=== PATIENT | male | born 1980 | race Caucasian/White ===

== ENCOUNTER 2024-12-28 11:41 | Emergency (ER) | payer OTHER, SELFPAY ==
[2024-12-28] VITALS (7 sets, daily range): BP systolic 136–164; BP diastolic 82–98; PULSE 70–102; RESP 15–20; TEMP 37.1–37.3; O2SAT 96–98; BMI 37.5
--- NOTE | 2024-12-28 11:44 | ECG_ITS ---
APPROVED REPORT Exam: Resting ECG HR:102 bpm ECG Measurements Heart Rate 102 AXES DE 166 P 51 QRSd 96 QRS 9 QT 315 T 17 QTc 374 Conclusion SINUS TACHYCARDIA MODERATE VOLTAGE CRITERIA FOR LVH, CONSIDER NORMAL VARIANT [MEETS CRITERIA IN ONE OF: R(aVL), S(V1), R(V5), R(V5/V6)+S(V1)] ABNORMAL RHYTHM ECG UNCONFIRMED REPORT Electronically signed by : RAQUEL SOMMERS, 12/29/2024 08:49:42
--- NOTE | 2024-12-28 11:49 | XR_ITS ---
FINAL REPORT TECHNIQUE: Single view chest CLINICAL HISTORY: chest pain FINDINGS: A single view of the chest was obtained. The heart and mediastinum are within normal limits. The lungs are clear. There is no pneumothorax. IMPRESSION: No acute cardiopulmonary process. Reviewed, Interpreted and Dictated by Yuan Gilbert MD Transcribed by Chiquis Jerome Authenticated and [facility]
--- NOTE | 2024-12-28 11:50 | ED_ITS ---
Discharge Plan Disposition Patient Disposition: Home, Self-Care Condition: Good Prescriptions Prescriptions: No Action No Known Home Medications Referrals Follow up/Referrals: Serafin Garcia MD [Primary Care Provider, Internal Medicine] - See instructions Activity Restrictions/Add. Instructions Additional Instructions/Restrictions: Follow-up with your primary care physician as your blood pressures were elevated here and your blood pressure will need to be checked again, and you may need to be on medication for your elevated blood pressure. If you develop any new or worsening symptoms, or if you become concerned for your health for any reason, return to the emergency department for evaluation Clinical Impressions Clinical Impression: Chest pain Print Language Print Language: Estonian Discharge ED Provider: Yang Gonzales General Adult HPI <Yang Gonzales MD - Last Filed: 12/28/24 15:01> General Chief complaint: Chest Pain Stated complaint: Chest Pain Time Seen by Provider: 12/28/24 11:41 Mode of Arrival: Ambulatory Source of Information: Patient Description of Symptoms (Recalled from ER Triage Doc. by RN): pt c/o left sided chest pain that lasted for about 30minutes while moving heavy boxes at work. o c/o shortness of breath. left ear fullness for 2 weeks. History of Present Illness HPI narrative: Bobby Armendariz is a 44-year-old male with no significant past medical history who presents to the emergency department for an episode of chest pain that occurred prior to arrival. Patient states that he was moving boxes at work and had a cramping tightness in his chest below his left nipple. He states that this lasted approximately 30 minutes. He states that the pain is resolving now. He denies any shortness of breath with it. He denies any nausea, vomiting, abdominal pain, fever, cough. Patient denies any personal cardiac history. He states that his father had a stroke. He does state that he has had fullness in his left ear for 2 weeks and has been dealing with nasal congestion. He denies any left ear pain. Related Data Home Medications ?Medication ?Instructions ?Recorded ?Confirmed No Known Home Medications 12/28/24 0810/17 Allergies Allergy/AdvReac Type Severity Reaction Status Date / Time No Known Allergies Allergy Verified 12/28/24 11:48 PFSH <Yang Gonzales MD - Last Filed: 12/28/24 15:01> [facility] Disclaimer: The information contained in this section may have been updated after the patient was seen, as this information can be updated by other users. Social History (Updated 12/28/24 @ 15:01 by Yang Gonzales MD) Smoking Status: Never smoker alcohol intake: never current occupational status: employed Travel in the last 8 weeks?: None Have you lived/traveled outside [place] in past 30 days?: No Contact w/someone who lives/traveled outside [place] past 30 days?: No Exposure to someone with infectious disease in past 14 days?: No Do you have a fever (greater than 100.4 F or 38 C)?: No Have you tested positive for COVID-19?: No Exposed to someone with COVID-19 in past 14 days?: No Do you have a sore throat?: No Do you have a cough?: No Do you have any weakness?: No Do you have any diarrhea?: No Are you experiencing any unusual bleeding?: No Do you have any muscle aches/pain?: No Do you have any abdominal pain?: No Are you experiencing loss of taste or smell?: No <Yang Gonzales MD - Last Filed: 12/28/24 15:01> ROS Obtained: Yes Systems reviewed as appropriate & no additional complaints except as documented Physical Exam <Yang Gonzales MD - Last Filed: 12/28/24 15:01> General General appearance: alert, in no apparent distress and anxious Head Head exam: atraumatic Eye Eye exam: Present normal appearance ENT ENT exam: Present normal external ear exam Neck Neck exam: Present full ROM Chest Chest inspection: Present symmetric chest wall rise Respiratory Respiratory exam: Present normal lung sounds bilaterally; Absent respiratory distress Cardiovascular Cardiovascular exam: Present regular rate and normal rhythm Abdominal Exam Abdominal exam: Present soft; Absent distention, tenderness or guarding exam: Present deferred Extremities Exam Extremities exam: Present normal inspection Back Exam Back exam: Present normal inspection Neurological Exam Neurological exam: Present alert and oriented X3 Psychiatric Psychiatric exam: Present normal affect Skin Skin exam: Present warm and dry Medical Decision Making <Yang Gonzales MD - Last Filed: 12/28/24 15:01> Medical Records Screening: Per USPSTF and CDC recommendations, given the prevalence of disease in our region, it is our hospital?s policy to screen for HIV and viral Hepatitis for all patients aged 18 and over and those with ongoing risk factors. Han Inquiry Pt receiving controlled substance: No Vital Signs: 12/28/24 11:45 12/28/24 12:00 12/28/24 12:30 Temperature 99.1 F Temperature Source Oral Pulse Rate 99 H 90 Pulse Rate [Right] 102 H Respiratory Rate 20 18 15 Blood Pressure 147/93 H 136/91 H Blood Pressure [Right Arm] 164/86 H Blood Pressure Mean Blood Pressure Mean [Right Arm] 112 02 Sat by Pulse Oximetry 98 98 98 Oxygen Delivery Method 12/28/24 13:30 12/28/24 14:31 12/28/24 15:00 Temperature Temperature Source Pulse Rate 82 89 70 Pulse Rate [Right] Respiratory Rate 17 15 17 Blood Pressure 146/98 H 139/82 141/85 H Blood Pressure [Right Arm] Blood Pressure Mean 96 Blood Pressure Mean [Right Arm] 02 Sat by Pulse Oximetry 97 96 96 Oxygen Delivery Method 12/28/24 16:37 Temperature 98.7 F Temperature Source Pulse Rate 91 H Pulse Rate [Right] Respiratory Rate 18 Blood Pressure 141/85 H Blood Pressure [Right Arm] Blood Pressure Mean Blood Pressure Mean [Right Arm] 02 Sat by Pulse Oximetry Oxygen Delivery Method Room Air Lab Data Lab Results 12/28/24 11:45: WBC 11.7 H, RBC 4.43 L, Hgb 13.5 L, Hct 38.9 L, MCV 87.8, MCH 30.5, MCHC 34.7, RDW 12.8, Plt Count 362, MPV 10.3, Neut % (Auto) 53.5, Lymph % (Auto) 38.3, [place] % (Auto) 6.3, Eos % (Auto) 1.0, Baso % (Auto) 0.3, Neut # (Auto) 6.3, Lymph # (Auto) 4.5, [place] # (Auto) 0.7, Eos # (Auto) 0.1, Baso # (Auto) 0.0, Sodium 137, Potassium 3.3 L, Chloride 105, Carbon Dioxide 22, Anion Gap 13.3, BUN 13, Creatinine 0.80, Estimated Creat Clear 178, Estimated GFR 104, Est GFR ( Amer) 126, Glucose 147 H, Calcium 9.5, Total Bilirubin 0.5, AST 50, ALT 57, Alkaline Phosphatase 111, Troponin I < 0.01, NT-Pro-B Natriuret Pep 37.1, Total Protein 7.7, Albumin 4.6, Globulin 3.1, Albumin/Globulin Ratio 1.5, TSH 0.87, Free T4 1.05 12/28/24 14:30: Troponin I < 0.01 12/28/24 11:45 12/28/24 11:45 Orders (Tests/Meds): ED MEDICATIONS Discontinued Medications Generic Name Dose Route Start Last Admin Trade Name Wm PRN Reason Stop Dose Admin Aspirin 325 mg 12/28/24 11:49 12/28/24 11:56 Aspirin 325mg Tablet PO 12/28/24 11:50 325 mg ONCE ONE Administration ORDERS Category Date Time Status CXR --portable [XR chest portable] Stat Exams 12/28/24 11:49 Completed BNP [NT Pro Brain Natriuretic Pep.] Stat Lab 12/28/24 11:45 Completed CBC w/Auto Diff [Complete Blood Count Auto Diff] Stat Lab 12/28/24 11:45 Completed CMP [Comprehensive Metabolic Panel] Stat Lab 12/28/24 11:45 Completed Free T4 (Free Thyroxine) Stat Lab 12/28/24 11:45 Completed TSH [Thyroid Stimulating Hormone] Stat Lab 12/28/24 11:45 Completed Troponin I Q3H Lab 12/28/24 14:30 Completed Troponin I Stat Lab 12/28/24 11:45 Completed ECG Data Tracing #1: I reviewed this ECG and interpreted as documented below: Sinus tachycardia. Ventricular rate of [address] elevation or depression. T wave inversions with downsloping QRS in lead III. QTc normal at 374 Medical Decision Narrative: Bobby Armendariz is a 44-year-old male with no significant past medical history who presents to the emergency department for an episode of chest pain that occurred prior to arrival. Patient states that he was moving boxes at work and had a cramping tightness in his chest below his left nipple. He states that this lasted approximately 30 minutes. He states that the pain is resolving now. He denies any shortness of breath with it. He denies any nausea, vomiting, abdominal pain, fever, cough. Patient denies any personal cardiac history. He states that his father had a stroke. He does state that he has had fullness in his left ear for 2 weeks and has been dealing with nasal congestion. He denies any left ear pain. On arrival, patient is initially hypertensive blood pressure 164/86, borderline tachycardic with a heart rate of 102, afebrile, maintaining appropriate oxygen saturation on room air. Physical exam, as stated above, reveals an overall well-appearing male in no distress. Cardiopulmonary exam is unremarkable with no murmurs, rubs, no wheezing, rales or rhonchi. Abdomen is soft, nontender nondistended. No evidence of peripheral edema. GCS 15. Differential diagnosis includes, but is not limited to: Musculoskeletal pain, ACS, pericarditis, myocarditis, costochondritis, pleurisy, hyperthyroidism, among others. Very low concern for pulmonary embolism as patient has no risk factors for it and has not been short of breath or hypoxic and his symptoms have resolved. The most morbid conditions were considered and workup was based on these. Workup in the emergency department included: EKG, troponin, CBC, CMP, BNP, TSH/free T4, chest x-ray Workup shows mild leukocytosis of 11.7 without left shift. Mild anemia with hemoglobin of 13.5, hematocrit 38.9. Mild hypokalemia at 3.3 but electrolytes otherwise within normal limits and nonactionable. No GEO. Liver enzymes within normal limits. Initial troponin less than 0.01. BNP normal at 37. Thyroid studies within normal limits. Patient was placed into ED observation status at 12:30 PM pending repeat troponin and reassessment. Patient remained on continuous cardiac monitoring with frequent reassessments during this time. Chest x-ray interpreted by me personally. No pneumothorax, no focal consolidation, no widening of the mediastinum, no enlarged cardiac silhouette. Unremarkable chest x-ray. At this time, patient's care was handed off to the oncoming physician, Dr. Meek, pending second troponin <Danielle Meek, DO - Last Filed: 12/28/24 18:08> Vital Signs: 12/28/24 11:45 12/28/24 12:00 12/28/24 12:30 Temperature 99.1 F Temperature Source Oral Pulse Rate 99 H 90 Pulse Rate [Right] 102 H Respiratory Rate 20 18 15 Blood Pressure 147/93 H 136/91 H Blood Pressure [Right Arm] 164/86 H Blood Pressure Mean Blood Pressure Mean [Right Arm] 112 02 Sat by Pulse Oximetry 98 98 98 Oxygen Delivery Method 12/28/24 13:30 12/28/24 14:31 08/05/25 15:00 Temperature Temperature Source Pulse Rate 82 89 70 Pulse Rate [Right] Respiratory Rate 17 15 17 Blood Pressure 146/98 H 139/82 141/85 H Blood Pressure [Right Arm] Blood Pressure Mean 96 Blood Pressure Mean [Right Arm] 02 Sat by Pulse Oximetry 97 96 96 Oxygen Delivery Method 12/28/24 16:37 Temperature 98.7 F Temperature Source Pulse Rate 91 H Pulse Rate [Right] Respiratory Rate 18 Blood Pressure 141/85 H Blood Pressure [Right Arm] Blood Pressure Mean Blood Pressure Mean [Right Arm] 02 Sat by Pulse Oximetry Oxygen Delivery Method Room Air Lab Data Lab Results 12/28/24 11:45: WBC 11.7 H, RBC 4.43 L, Hgb 13.5 L, Hct 38.9 L, MCV 87.8, MCH 30.5, MCHC 34.7, RDW 12.8, Plt Count 362, MPV 10.3, Neut % (Auto) 53.5, Lymph % (Auto) 38.3, [place] % (Auto) 6.3, Eos % (Auto) 1.0, Baso % (Auto) 0.3, Neut # (Auto) 6.3, Lymph # (Auto) 4.5, [place] # (Auto) 0.7, Eos # (Auto) 0.1, Baso # (Auto) 0.0, Sodium 137, Potassium 3.3 L, Chloride 105, Carbon Dioxide 22, Anion Gap 13.3, BUN 13, Creatinine 0.80, Estimated Creat Clear 178, Estimated GFR 104, Est GFR ( Amer) 126, Glucose 147 H, Calcium 9.5, Total Bilirubin 0.5, AST 50, ALT 57, Alkaline Phosphatase 111, Troponin I < 0.01, NT-Pro-B Natriuret Pep 37.1, Total Protein 7.7, Albumin 4.6, Globulin 3.1, Albumin/Globulin Ratio 1.5, TSH 0.87, Free T4 1.05 12/28/24 14:30: Troponin I < 0.01 Orders (Tests/Meds): ED MEDICATIONS Discontinued Medications Generic Name Dose Route Start Last Admin Trade Name Freq PRN Reason Stop Dose Admin Aspirin 325 mg 12/28/24 11:49 12/28/24 11:56 Aspirin 325mg Tablet PO 12/28/24 11:50 325 mg ONCE ONE Administration ORDERS Category Date Time Status CXR --portable [XR chest portable] Stat Exams 12/28/24 11:49 Completed BNP [NT Pro Brain Natriuretic Pep.] Stat Lab 12/28/24 11:45 Completed CBC w/Auto Diff [Complete Blood Count Auto Diff] Stat Lab 12/28/24 11:45 Completed CMP [Comprehensive Metabolic Panel] Stat Lab 12/28/24 11:45 Completed Free T4 (Free Thyroxine) Stat Lab 12/28/24 11:45 Completed TSH [Thyroid Stimulating Hormone] Stat Lab 12/28/24 11:45 Completed Troponin I Q3H Lab 12/28/24 14:30 Completed Troponin I Stat Lab 12/28/24 11:45 Completed Medical Decision Narrative: Bobby Armendariz is a 44-year-old male with no significant past medical history who presents to the emergency department for an episode of chest pain that occurred prior to arrival. Patient states that he was moving boxes at work and had a cramping tightness in his chest below his left nipple. He states that this lasted approximately 30 minutes. He states that the pain is resolving now. He denies any shortness of breath with it. He denies any nausea, vomiting, abdominal pain, fever, cough. Patient denies any personal cardiac history. He states that his father had a stroke. He does state that he has had fullness in his left ear for 2 weeks and has been dealing with nasal congestion. He denies any left ear pain. On arrival, patient is initially hypertensive blood pressure 164/86, borderline tachycardic with a heart rate of 102, afebrile, maintaining appropriate oxygen saturation on room air. Physical exam, as stated above, reveals an overall well-appearing male in no distress. Cardiopulmonary exam is unremarkable with no murmurs, rubs, no wheezing, rales or rhonchi. Abdomen is soft, nontender nondistended. No evidence of peripheral edema. GCS 15. Differential diagnosis includes, but is not limited to: Musculoskeletal pain, ACS, pericarditis, myocarditis, costochondritis, pleurisy, hyperthyroidism, among others. Very low concern for pulmonary embolism as patient has no risk factors for it and has not been short of breath or hypoxic and his symptoms have resolved. The most morbid conditions were considered and workup was based on these. Workup in the emergency department included: EKG, troponin, CBC, CMP, BNP, TSH/free T4, chest x-ray Workup shows mild leukocytosis of 11.7 without left shift. Mild anemia with hemoglobin of 13.5, hematocrit 38.9. Mild hypokalemia at 3.3 but electrolytes otherwise within normal limits and nonactionable. No GEO. Liver enzymes within normal limits. Initial troponin less than 0.01. BNP normal at 37. Thyroid studies within normal limits. Patient was placed into ED observation status at 12:30 PM pending repeat troponin and reassessment. Patient remained on continuous cardiac monitoring with frequent reassessments during this time. Chest x-ray interpreted by me personally. No pneumothorax, no focal consolidation, no widening of the mediastinum, no enlarged cardiac silhouette. Unremarkable chest x-ray. At this time, patient's care was handed off to the oncoming physician, Dr. Meek, pending second troponin Danielle Meek, Patient's second troponin was less than 0.01. On exam, patient's pain had resolved. At this time given patient's otherwise unremarkable workup I felt that patient was appropriate for discharge home. Patient was given return precautions and discharged home in stable condition. Critical Care <Yang Gonzales MD - Last Filed: 12/28/24 15:01> Critical Care Time Critical Care Time: No
[2024-12-28] MEDS: ASPIRIN 325MG TABLET 325 MG PO (11:56)
[2024-12-28 12:02] LABS: Hematocrit 38.9 % (42.0-52.0); Hemoglobin 13.5 g/dL (14.1-18.0); Immature Granulocytes % 0.6 %; Mean Corpuscular HGB Conc 34.7 g/dL (31.8-35.4); Mean Corpuscular Hemoglobin 30.5 pg (27.0-31.2); Mean Corpuscular Volume 87.8 fl (80-94); Nucleated Red Blood Cells % 0 %; Platelet Count 362 K/mm3 (142-424); Red Blood Count 4.43 M/mm3 (4.60-6.20); Red Cell Distribution Width-SD 41.4 fL; White Blood Count 11.7 K/mm3 (4.8-10.8)
[2024-12-28 12:07] LABS: Alanine Aminotransferase 57 U/L (12-78); Albumin Level 4.6 g/dl (3.5-5.0); Albumin/Globulin Ratio 1.5 (1.1-1.8); Alkaline Phosphatase 111 U/L (38-126); Anion Gap 13.3 mEq/L (5-15); Aspartate Amino Transferase 50 U/L (17-59); Bilirubin,Total 0.5 mg/dl (0.2-1.3); Blood Urea Nitrogen 13 mg/dl (9-20); Calcium 9.5 mg/dl (8.4-10.2); Carbon Dioxide 22 mmol/L (22.0-30.0); Chloride 105 mmol/L (98-107); Creatinine Clearance Estimated 178 mL/min (50-200); Creatinine,Serum 0.80 mg/dl (0.66-1.25); Estimated Glomerular Filt Rate 104 ml/min (>60); GFR (African American) 126 ML/MIN (>60); Globulin 3.1 g/dL (1.3-3.2); Glucose 147 mg/dl (74-100); Potassium 3.3 mmoL/L (3.5-5.1); Sodium 137 mmol/L (136-145); Total Protein,Serum 7.7 g/dl (6.3-8.2)
[2024-12-28 12:16] LABS: NT Pro Brain Natriuretic Pep. 37.1 pg/mL (0-125)
[2024-12-28 12:24] LABS: Free T4 (Free Thyroxine) 1.05 ng/dl (0.78-2.19)
[2024-12-28 12:38] LABS: Thyroid Stimulating Hormone 0.87 uIU/mL (0.465-4.68)
[2024-12-28 12:58] LABS: Troponin I < 0.01 ng/ml (0.00-0.034)
[2024-12-28 15:27] LABS: Troponin I < 0.01 ng/ml (0.00-0.034)
== END 2024-12-28 16:38 | disposition home or self-care (01) ==
PROVIDERS: Emergency Provider Student in an Organized Health Care Education/Training Program; PCP Internal Medicine Adolescent Medicine
DX: R07.89 Other chest pain (principal)
CPT/HCPCS: 71045; 80053; 83880; 84439; 84443; 84484; 85025; 93005; 99285